=== PATIENT | male | born 1940 | race Caucasian/White ===

== ENCOUNTER → 2018-12-02 | Outpatient (CLI) | payer MEDICARE, BC | LOC: M SMT 14:00 | PROVIDERS: ATTEND Internal Medicine Pulmonary Disease | DX: R91.8 Other nonspecific abnormal finding of lung field (principal) ==

== ENCOUNTER → 2018-12-25 | Outpatient (CLI) | payer MEDICARE, BC ==
--- NOTE | 2018-12-25 11:01 | REP ---
High-resolution CT of the chest without IV contrast: Scanning is initially performed at end inspiration . Scanning is repeated at end expiration. Comparison is a PA and lateral plain film study from an outside instant. A comparison outside study demonstrated nonspecific reticular densities in the lung bases bilaterally. There is diffuse interstitial thickening compatible with interstitial lung disease and / or interstitial fibrosis. There is no subpleural honeycombing. There is minor atelectasis in the right middle lobe on the end expiration study. No focal areas of consolidation are identified otherwise. There are no pleural effusions. There is borderline bronchiectasis in the lower lobes bilaterally. The there is no mediastinal or axillary lymph node enlargement. The study is insensitive for hilar lymph node enlargement in the absence of IV contrast. The unenhanced thoracic aorta is unremarkable except for occasional calcified atheroma. Cardiac size is normal. There is no pericardial effusion. There are occasional atheromatous calcifications in the coronary arteries. Upper abdomen: There are small gallbladder calculi. The adrenals are unremarkable. The visualized upper abdomen is otherwise unremarkable. 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 Impression: Diffusely thickened interstitium, compatible with interstitial lung disease, fibrosis or combination. Minor atelectasis in the right middle lobe on the end expiration film. There are no other focal areas of consolidation. There are no pleural effusions. No adenopathy. No subpleural honeycombing. Cholelithiasis. Advanced osteoarthritis of the right shoulder. Electronically Signed by Valeriy Mancilla MD 12/25/2018 10:52 A
== END ==
LOC: M RAD 10:13
PROVIDERS: ATTEND Internal Medicine Pulmonary Disease
DX: R91.8 Other nonspecific abnormal finding of lung field (principal); M19.011 Primary osteoarthritis, right shoulder

== ENCOUNTER → 2019-08-14 | Outpatient (REF) | payer MEDICARE, OTHER ==
[2019-08-14 17:49] LABS: C REACTIVE PROTEIN QUANTITATIV 1.21 MG/DL (0.00-0.30); RHEUMATOID FACTOR QUANT < 10.0 IU/ML (<15.0)
[2019-08-16 09:31] LABS: ALBUMIN 3.2 GM/DL (3.2-5.2); ALT/SGPT 19 U/L (12-78); BILIRUBIN,DIRECT < 0.1 MG/DL (0.0-0.2); BILIRUBIN,TOTAL 0.3 MG/DL (0.2-1.0); TOTAL PROTEIN 8.1 GM/DL (6.4-8.2)
== END ==
LOC: M LAB REF 16:40
PROVIDERS: ATTEND Internal Medicine Pulmonary Disease
DX: J84.112 Idiopathic pulmonary fibrosis (principal)